=== PATIENT | female | born 1940 | race Caucasian/White ===

== ENCOUNTER → 2018-02-25 | Outpatient (CLI) | payer OTHER ==
[~2018-02-25] MED LIST: ALBUTEROL NEB INH; ALIGN4 MG PO; B12INJ PO; BIOTIN1 M1 PO; BIOTIN1000 MCG PO; BIOTIN300 MCG PO; CALCITRATE200 MG PO; CALCIUM 600 +1 EAC1 PO; CEFTIN 250 MG250 MG PO; CIPRO PO; CLONAZEPAM 1 MG1 M1 PO; HYDRALAZINE 2525 MG PO; HYDROCHLOROTHIA25 M1 PO; K-DUR10 ME1 PO; K-DUR10 MEQ PO; LORTAB 5 MG/5001 TA1; LORTAB 5 MG/5001 TA1 PO; MAGNESIUM 300300 MG PO; METAMUCIL1 EAC1 PO; METAMUCIL283 GM PO; MIRALAX17 GM PO; MUCINEX600 MG PO; MULTIVITAMINS PO; NORCO 5-325 TA1 EACH PO; OMEGA-31000 MG PO; PROLIA60 MG/1 ML SUBQ; PROTONIX40 M2 PO; RECLAST 55 MG/100 M; VITAMIN B-12500 MCG PO; VITAMIN C + RO500 MG PO; VITAMIN D-32000 UNIT PO; VITAMIN D31000 UNIT PO; VITAMIN E400 UNIT PO; ZINC CHELATE50 MG PO; ZOFRAN ODT4 MG PO; [UNRECOGNIZED DRUG - OTHER]
== END ==
LOC: RAD 01:31
DX: Z12.31 Encounter for screening mammogram for malignant neoplasm of breast (principal)

== ENCOUNTER 2018-08-02 20:23 | Emergency (ER) | payer OTHER ==
[~2018-08-02] VITALS: Ht 165.1 cm; Wt 48.5 kg
--- NOTE | ~2018-08-02 | EKG ---
[place] [address] [facility] [place] [address] ELECTROCARDIOGRAM REPORT Name: BLOSSOM SIEGEL Room #: DEP [facility]#: [id number] Admission: 08/02/18 Attend Phys: Discharge: 08/02/18 Date of : 40 Report #: [id number] THIS REPORT FOR: //name// [facility] ED Test Date: 2018-08-02 Test Time: 20:38:59 Pat Name: BLOSSOM SIEGEL Department: Room: Gender: F Head Pumper: JO : 1940 Requested By: Can Diehl Order Number: [id number] MD: Peng Horn Measurements Intervals Valencia Rate: 67 P: 79 AR: 252 QRS: 106 QRSD: 142 T: 58 QT: 466 QTc: 492 Interpretive Statements Atrial-sensed ventricular-paced rhythm No further analysis attempted due to paced rhythm Compared to ECG 01/22/2018 18:55:54 No significant changes Electronically Signed On 08-03-2018 7:36:52 STAFFING [employer]PERATIONS MANAGER by Peng Horn [email or web address] <ELECTRONICALLY SIGNED> By: Peng Horn MD, [facility] 08/03/18 0736 37 37 Peng Horn MD, [facility] /EPI
[2018-08-02] MEDS ORDERED: DOXYCYCLINE HY100 M3 PO (20:42)
[2018-08-02] MEDS ORDERED: RIFADIN300 MG PO (20:43)
[2018-08-02 21:00] LABS: ABSOLUTE NEUTROPHILS 6.6 thou/uL (1.4-8.2); BASOPHILS 0.6 % (0.0-2.0); EOSINOPHILS 2.5 % (0.0-3.0); HEMATOCRIT 38.5 % (37.0-47.0); HEMOGLOBIN 13.3 gm/dL (12.0-15.0); LYMPHOCYTES 14.5 % (24.0-44.0); MCH 30.9 pg (26.0-34.0); MCHC 34.5 g/dL (28.0-37.0); MCV 89.5 fL (80.0-100.0); MONOCYTES 7.7 % (1.0-8.0); PLATELET COUNT 195 thou/uL (150-400); POLYS 74.7 % (36.0-66.0); WBC 8.8 thou/uL (4.0-11.0)
[2018-08-02 21:05] LABS: ANION GAP 5 mmol/L (7-16); BUN 28 mg/dL (7-18); CALCIUM 9.4 mg/dL (8.5-10.1); CHLORIDE 101 mmol/L (98-107); CO2 28 mmol/L (21-32); CREATININE 0.8 mg/dL (0.6-1.0); GLUCOSE 111 mg/dL (74-106); POTASSIUM 4.2 mmol/L (3.5-5.1); SODIUM 134 mmol/L (136-145)
[2018-08-02 21:14] LABS: ALBUMIN 3.4 g/dL (3.4-5.0); MAGNESIUM 1.7 mg/dL (1.8-2.4); SGOT 31 U/L (15-37); SGPT 38 U/L (30-65); TOTAL BILIRUBIN 0.4 mg/dL (<0.1-1.0); TOTAL PROTEIN 6.7 g/dL (6.4-8.2); TROPONIN-I <0.06 ng/mL (<0.06)
[2018-08-02 22:46] VITALS: BP 133/83
== END 2018-08-02 22:47 | disposition home or self-care (01) ==
LOC: ER 20:23
PROVIDERS: Emergency Medicine
DX: R00.2 Palpitations (principal); Z95.0 Presence of cardiac pacemaker; K21.9 Gastro-esophageal reflux disease without esophagitis; I10 Essential (primary) hypertension; G25.81 Restless legs syndrome; Z87.891 Personal history of nicotine dependence; Z88.1 Allergy status to other antibiotic agents; Z88.2 Allergy status to sulfonamides; Z90.89 Acquired absence of other organs; Z90.49 Acquired absence of other specified parts of digestive tract; Z90.5 Acquired absence of kidney

== ENCOUNTER → 2019-02-24 | Outpatient (CLI) | payer OTHER ==
[~2019-02-24] MED LIST changes: +DOXYCYCLINE HY100 M3 PO; +RIFADIN300 MG PO
[2019-02-24 09:36] LABS: CALCIUM 10.3 mg/dL (8.5-10.1); CREATININE 0.9 mg/dL (0.6-1.0); POTASSIUM 3.9 mmol/L (3.5-5.1)
--- NOTE | 2019-02-26 08:06 | PATH ---
[facility] [address] [place] [address] PATHOLOGY RPT PROCEDURE Name: YOLANDA LYNN Room #: REG ARY Fuller#: [id number] ������������������ Admission: 02/24/19 ������������������ Date of : 40 Discharge: Report #: [id number] Path Case #: [id number] [facility] Accession Number: [id number] . 01 Material submitted: . esophagus - DISTAL ESOPHAGUS RULE OUT BARRETTS. Modifiers: distal . 01 Clinical history: . GERD, abdominal bloating GERD, abdominal bloating rule out Howard's . 02 Diagnosis: Gastric cardia-type mucosa, distal esophagus R/O Howard's, endoscopic biopsy: - Moderate chronic inflammation. - Negative for intestinal metaplasia or dysplasia. (IUV:angela; 02/25/2019) QMS/02/25/2019 . 02 Electronically signed: . Sana Womack MD, Pathologist NPI- [id number] . 01 Gross description: . The specimen is received in formalin, labeled "Yolanda Lynn, BX distal esophagus rule out Howard's" and consists of 2 fragments of bethea tissue measuring 0.6 x 0.3 cm and 0.5 x 0.2 cm which are entirely submitted in A1. (SDY; 02/24/2019) SYU/SYU . 02 Pathologist provided ICD-10: K20.9 . 02 CPT . 503733 Specimen Comment: A courtesy copy of this report has been sent to Specimen Comment: [phone], . Specimen Comment: Report sent to / DR PALOMO Specimen Comment: A duplicate report has been generated due to demographic update Specimen Comment: of the patient's Date of , Age, Gender, and/or Specimen Date. Specimen Comment: Please review patient results, reference intervals, and calculated Specimen Comment: results that may have been affected by this change. Performed at: 01 [place] [address] PATHOLOGY RPT PROCEDURE Name: YOLANDA LYNN [facility] [id number] ������������������ Admission: 02/24/19 ������������������ Date of : 40 Discharge: Report #: [id number] Path Case #: [id number] [facility] [address] [place] [address] [address], [place] [id number] MD Sedrick Murrell MD Phone: [phone] Performed at: [address] [id number] MD Sana Womack MD Phone: [phone]
--- NOTE | 2019-02-26 08:47 | P ---
[facility] [place] [address] [place] [address] PROCEDURE REPORT Name: BLOSSOM SIEGEL Room #: REG [facility]#: [id number] Admission: 02/24/19 ������������������ Attend Phys: Иван Mesa Discharge: ������������������ Date of : 40 Report #: [id number] THIS REPORT FOR: //name// CC: Ru Molina DATE OF SERVICE: 02/24/2019 PROCEDURE PERFORMED: Upper endoscopy with biopsies. HISTORY OF PRESENT ILLNESS: The patient is a 78-year-old female with gastroesophageal reflux disease who has been on PPI therapy for a long period of time, but this has become less effective. She also complains of abdominal bloating, gas as well as early satiety. She was seen in the office by myself on 02/09/2019. We proceeded with labs testing, which was negative for H. pylori and celiac sprue. We discussed trial of a different probiotic, considering b.i.d. PPI therapy. The patient has already tried simethicone with minimal improvement. Plan is for upper endoscopy. DESCRIPTION OF PROCEDURE: The risks and benefits of the procedure were explained to the patient, those risks including but not limited to bleeding, perforation and the risk of sedation. She understood these risks and gave informed consent. Propofol was given per Anesthesia. Next, using a standard Olympus upper endoscope, the scope was placed in the patient's mouth and advanced under direct vision to the esophagus, stomach and into the second portion of the duodenum. The larynx was normal in appearance. The upper and mid esophagus was normal. 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 Biopsies were obtained. There was no evidence of erosive esophagitis. Overall, the gastric mucosa was normal. The pylorus was normal and patent. The duodenal bulb, first and second portion were all normal. The scope was then withdrawn and the procedure terminated. The patient tolerated the procedure well. IMPRESSION: 1. 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 2. Otherwise, normal upper endoscopy. RECOMMENDATIONS: 1. Await biopsy results. 2. We discussed increasing Protonix to b.i.d. 3. We also discussed proceeding with a gastric emptying study as the patient does complain of early satiety and abdominal bloating, especially after eating. [address] [address] PROCEDURE REPORT Name: BLOSSOM SIEGEL Room #: REG [facility] Alina#: [id number] Admission: 02/24/19 ������������������ Attend Phys: Иван Mesa Discharge: ������������������ Date of : 40 Report #: [id number] Thank you for allowing me to participate in her care. ��������������������������������������������� <ELECTRONICALLY SIGNED> ���������������������������������������� By: Иван Molina MD ��������������������������������������������� 02/26/19 0847 1031 1804 Иван Molina MD /nt
== END | disposition home or self-care (01) ==
LOC: GI 08:20
PROVIDERS: Specialist
DX: K29.50 Unspecified chronic gastritis without bleeding (principal); K21.9 Gastro-esophageal reflux disease without esophagitis; I12.9 Hypertensive chronic kidney disease with stage 1 through stage 4 chronic kidney disease, or unspecified chronic kidney disease; N18.9 Chronic kidney disease, unspecified; Z95.0 Presence of cardiac pacemaker; Z90.5 Acquired absence of kidney; Z88.2 Allergy status to sulfonamides; Z88.8 Allergy status to other drugs, medicaments and biological substances; Z79.899 Other long term (current) drug therapy
CPT/HCPCS: 62110; 62900

== ENCOUNTER → 2019-03-16 | Outpatient (CLI) | payer OTHER | LOC: RAD 03:03 | DX: Z12.31 Encounter for screening mammogram for malignant neoplasm of breast (principal) ==

== ENCOUNTER → 2019-03-23 | Outpatient (CLI) | payer OTHER | LOC: NUC 08:14 | DX: R68.81 Early satiety (principal); R14.0 Abdominal distension (gaseous) ==

== ENCOUNTER → 2020-03-27 | Outpatient (CLI) | payer OTHER | LOC: RAD 08:06 | PROVIDERS: ATTEND Internal Medicine | DX: Z12.31 Encounter for screening mammogram for malignant neoplasm of breast (principal) ==

== ENCOUNTER → 2020-03-31 | Outpatient (CLI) | payer OTHER ==
[2020-03-31 15:43] LABS: CREATININE 0.9 mg/dL (0.6-1.0)
== END ==
LOC: LAB 15:05
PROVIDERS: ATTEND Pediatrics
DX: I26.09 Other pulmonary embolism with acute cor pulmonale (principal); I70.0 Atherosclerosis of aorta

== ENCOUNTER → 2020-04-28 | Outpatient (CLI) | payer OTHER ==
[~2020-04-28] MED LIST changes: +CALCIUM + VITA1 EACH PO; +CARAFATE 1 GM TA1 GM PO; +KEFLEX500 M1 PO; +OMEPRAZOLE 20 M20 M1 PO; +PROBIOTIC1 EAC3 PO; +TUMS300 MG PO
== END ==
LOC: LAB 12:02
PROVIDERS: ATTEND Specialist
DX: Z01.812 Encounter for preprocedural laboratory examination (principal); Z20.828 Contact with and (suspected) exposure to other viral communicable diseases

== ENCOUNTER → 2020-05-03 | Outpatient (CLI) | payer OTHER ==
[~2020-05-03] VITALS: Ht 165.1 cm; Wt 49.4 kg
--- NOTE | 2020-05-05 08:12 | P ---
[facility] [place] [address] PROCEDURE REPORT Name: BLOSSOM SIEGEL [id number] Admission: 05/03/20 Attend Phys: Иван Mesa Discharge: Date of : 40 Report #: [id number] THIS REPORT FOR: cc: Ru Murphy MD, Bernard O. MD McElhinney, Christian C. MD ~ CC: Ru Soto MD DATE OF SERVICE: 05/03/2020 PROCEDURE PERFORMED: Colonoscopy with polypectomies. HISTORY OF PRESENT ILLNESS: The patient is a 79-year-old female who has a pulmonary nodule. This has been evaluated recently by PET scan. It did show some uptake in the cecum. The patient had a colonoscopy 2 years ago in which polyps were removed in the sigmoid colon, was also noted to have sigmoid diverticulosis at that time. She reports her bowel movements have been normal. No family history of colon cancer. Plan is for colonoscopy. DESCRIPTION OF PROCEDURE: The risks and benefits of the procedure were explained to the patient, those risks including but not limited to bleeding, perforation and the risk of sedation. She understood these risks and gave informed consent. Sedation was given using propofol per anesthesia. Next, a digital rectal exam was initially performed, which was normal. Next, using a pediatric Olympus colonoscope, the scope was placed in the patient's anus and advanced under direct vision to the cecum. The overall prep was excellent. In the cecum, there was a 6 mm sessile polyp. This was removed by snare cautery, otherwise normal. The ileocecal valve was normal. In the ascending colon, a 5 mm sessile polyp also noted and removed by snare cautery. The transverse and descending colon were normal. Multiple diverticula were noted in the sigmoid colon, no evidence of inflammation, otherwise normal. The rectal mucosa was normal. No abnormalities were noted on retroflexion. The scope was then withdrawn and the procedure terminated. The patient tolerated the procedure well. IMPRESSION: 1. Cecal polyp, likely reason for PET scan showing abnormality in the cecum. No other abnormalities noted. No evidence of colitis. Polyp was removed. 2. Ascending colon polyp. 3. Sigmoid diverticulosis. RECOMMENDATIONS: Await biopsy results. [address] [address] PROCEDURE REPORT Name: BLOSSOM SIEGEL Room #: REG [facility] Alina#: [id number] Admission: 05/03/20 Attend Phys: Иван Mesa Discharge: Date of : 40 Report #: [id number] Thank you for allowing me to participate in her care. <ELECTRONICALLY SIGNED> By: Иван Molina MD 05/05/20 0812 1126 1405 Иван Molina MD /nt
--- NOTE | 2020-05-05 08:12 | P ---
[facility] [place] [address] PROCEDURE REPORT Name: BLOSSOM SIEGEL Room #: REG ARY Fuller#: [id number] Admission: 05/03/20 Attend Phys: Иван Mesa Discharge: Date of : 40 Report #: [id number] THIS REPORT FOR: cc: Ru Murphy MD, Bernard O. MD McElhinney, Christian C. MD ~ CC: Ru Soto MD DATE OF SERVICE: 05/03/2020 PROCEDURE PERFORMED: Upper endoscopy with biopsies and esophageal dilation. HISTORY OF PRESENT ILLNESS: The patient is a 79-year-old female with a history of gastroesophageal reflux disease, intermittent dysphagia. Despite being on b.i.d. PPI therapy and Carafate, as well as simethicone, she still complains of abdominal bloating and gas. Previous upper endoscopy by my partner 2 years ago was essentially negative. Gastric polyp biopsies were fundic gland polyp at that time. Biopsies for celiac sprue were negative. Gastric emptying study was performed in 03/2019, which was normal. During her last visit, we discussed a trial of simethicone and Reglan, which she has tried without much improvement. The patient also has a pulmonary nodule with a recent PET scan followup showing the nodule, but also uptake possibly in the cecum; therefore, she is scheduled for EGD and colonoscopy today. DESCRIPTION OF PROCEDURE: The risks and benefits of the procedure were explained to the patient, those risks including but not limited to bleeding, perforation, and the risk of sedation. She understood these risks and gave informed consent. Sedation was given using propofol per anesthesia. Next, using a standard Olympus upper endoscope, the scope was placed in the patient's mouth and advanced under direct vision through the esophagus, stomach and into the second portion of the duodenum. The larynx was normal in appearance. The esophagus was normal throughout. The GE junction was normal. Overall, the gastric mucosa was normal. Because of her symptoms, biopsies were obtained to rule out H. pylori. The pylorus was normal and patent. The duodenal bulb, first and second portion were all normal. The scope was then brought back up into the patient's stomach and a Savary guidewire was inserted through the scope, leaving the guidewire in place, as the scope was then withdrawn. Next, a 48-Djiboutian Savary dilation of the esophagus was performed without difficulty. A 51-Djiboutian was used. The wire and dilator were removed. The scope was reintroduced into the patient's mouth and into her stomach. No evidence of mucosal tear was noted after dilation. The scope was then withdrawn and the procedure terminated. The patient tolerated the procedure well. [address] [address] PROCEDURE REPORT Name: BLOSSOM SIEGEL Parker Room #: REG [facility] Alina#: [id number] Admission: 05/03/20 Attend Phys: Иван Mesa Discharge: Date of : 40 Report #: [id number] IMPRESSION: Normal upper endoscopy. RECOMMENDATIONS: 1. Await biopsy results. 2. Observe the patient post-dilation. 3. We discussed a trial of different PPI therapy. 4. We will proceed with colonoscopy next today. Thank you for allowing me to participate in her care. <ELECTRONICALLY SIGNED> By: Иван Molina MD 05/05/20 0812 1045 1310 Иван Molina MD /nt
--- NOTE | 2020-05-05 15:07 | PATH ---
[facility] [place] [address] PATHOLOGY RPT PROCEDURE Name: YOLANDA LYNN Room #: REG ARY [facility]que.#: [id number] Admission: 05/03/20 Date of : 40 Discharge: Report #: [id number] Path Case #: [id number] [facility] Accession Number: [id number] . 01 Material submitted: . PART A: stomach - BIOPSY OF GASTRITIS R/O H. PYLORI PART B: cecum - POLYP AT CECUM PART C: colon - POLYP AT ASCENDING COLON. Modifiers: ascending . 02 Diagnosis: A. Stomach, biopsy: - Mild chronic inactive gastritis. - An H. pylori immunostain is negative (A1; appropriate control). . B. Cecum, biopsy: - Sessile serrated polyp, fragments. - Negative for high grade dysplasia. . C. Ascending colon, biopsy: - Tubular adenoma. - Negative for high grade dysplasia. . (MAP:[facility]; 05/04/2020) [facility] 05/04/2020 1550 Local . 02 Electronically signed: . Juan A Larios MD, Pathologist NPI- [id number] . 01 Gross description: . A. The specimen is received in formalin, labeled "LeahYolanda", "biopsy of gastritis". Received are 3 segments of pale bethea soft tissue, measuring 0.1, 0.2 and 0.3 cm. The specimen is entirely submitted in cassette A1. . B. The specimen is received in formalin, labeled "Yolanda Lynn", "polyp at cecum". Received are 4 polypoid segments of dark pink-bethea soft tissue, ranging in size from 0.1 cm to 0.8 cm. The specimen is entirely submitted in cassette B1. . C. The specimen is received in formalin, labeled "Yolanda Lynn", "polyp at ascending colon". Received is a single polypoid segment of pale bethea soft tissue measuring 0.2 cm. The specimen is entirely submitted in cassette C1.([facility]; 05/03/2020) BEN/TAMMY 05/03/2020 [facility] Local . 02 Pathologist provided ICD-10: K29.50, K63.5, D12.2 [place] [address] PATHOLOGY RPT PROCEDURE Name: LEAHYOLANDA Room #: REG Adeola Fuller#: [id number] Admission: 05/03/20 Date of : 40 Discharge: Report #: [id number] Path Case #: [id number] . 02 CPT . 429235, 098469, [id number], [id number] Specimen Comment: A courtesy copy of this report has been sent to [phone] Specimen Comment: [phone] Specimen Comment: Report sent to / DR PALOMO Performed at: [address], [place] [id number] MD Sedrick Murrell MD Phone: [phone] Performed at: [address] [facility] [id number] MD Sana Womack MD Phone: [phone]
== END | disposition home or self-care (01) ==
LOC: GI 04-14 11:27
PROVIDERS: ATTEND Specialist
DX: R93.3 Abnormal findings on diagnostic imaging of other parts of digestive tract (principal); R14.0 Abdominal distension (gaseous); D12.0 Benign neoplasm of cecum; D12.2 Benign neoplasm of ascending colon; K57.30 Diverticulosis of large intestine without perforation or abscess without bleeding; K29.50 Unspecified chronic gastritis without bleeding; R13.10 Dysphagia, unspecified; M81.0 Age-related osteoporosis without current pathological fracture; K21.9 Gastro-esophageal reflux disease without esophagitis; Z98.890 Other specified postprocedural states; Z79.899 Other long term (current) drug therapy; Z95.0 Presence of cardiac pacemaker; Z85.528 Personal history of other malignant neoplasm of kidney; Z85.828 Personal history of other malignant neoplasm of skin; Z87.19 Personal history of other diseases of the digestive system; Z90.49 Acquired absence of other specified parts of digestive tract; Z98.51 Tubal ligation status
CPT/HCPCS: 62110; 62900

== ENCOUNTER → 2020-07-05 | Outpatient (CLI) | payer OTHER | LOC: CAT 10:29 | PROVIDERS: ATTEND Internal Medicine | DX: R91.8 Other nonspecific abnormal finding of lung field (principal); J98.4 Other disorders of lung ==

== ENCOUNTER → 2020-08-03 | Outpatient (CLI) | payer OTHER ==
[~2020-08-03] VITALS: Ht 165.1 cm; Wt 49.4 kg
[2020-08-03 08:32] LABS: APTT 25.6 Seconds (24.5-32.8); PROTIME 10.6 Seconds (9.3-11.4)
[2020-08-03 10:11] VITALS: BP 165/63
[2020-08-03 12:43] VITALS: BP 139/61
[2020-08-03 12:47] VITALS: BP 152/53
--- NOTE | 2020-08-08 16:06 | PATH ---
[facility] [address] [place] [address] PATHOLOGY RPT PROCEDURE Name: YOLANDA LYNN Room #: REG [facility].#: [id number] Admission: 08/03/20 Date of : 40 Discharge: Report #: [id number] Path Case #: [id number] [facility] Accession Number: [id number] . 01 Material submitted: . lung - RIGHT LUNG MASS. Modifiers: right . 02 Diagnosis: Lung, right lung mass, needle core biopsy: - Numerous non-necrotizing granulomata. - Mild chronic inflammation. - Negative for foreign body-type polarizable material. - Background of benign alveolated lung parenchyma. - Negative for malignancy. (IUV:pit 08/07/2020) QTP 08/07/2020 1249 Local . 02 Comment: AFB and GMS fungal special stains are ordered on block A1. The results of these will be reported in an addendum to follow. (IUV:pit 08/07/2020) . 02 Addendum: . Acid fast bacillus and Gomori methenamine silver stains performed on A1 are negative for mycobacterial as well as fungal elements, respectively (IUV:pit 08/08/2020) . Professional services performed by [facility] at [facility], [address] [place], [place] [address], [place] [address]. Technical services performed by [facility] at [address] [place] [address], [address] [address]. MBR/08/08/2020 Addendum Electronically Signed by Sana Womack MD, Pathologist . 02 Electronically signed: . Sana Womack MD, Pathologist NPI- [id number] . 01 Gross description: . The specimen is received in formalin, labeled "Yolanda Lynn, right lung biopsy". Received are multiple needle cores of pale bethea friable soft tissue ranging in length from 0.3 to 0.9 cm in length by 0.1 cm in diameter. The specimen is submitted entirely in cassette A1 through A3. ([facility]; 08/04/2020) QAC/QAC 08/04/2020 1017 Local . 02 Pathologist provided ICD-10: J84.10, J18.[address] [address] PATHOLOGY RPT PROCEDURE Name: YOLANDA LYNN Room #: REG CL M.R.#: [id number] Admission: 08/03/20 Date of : 40 Discharge: Report #: [id number] Path Case #: [id number] . 02 CPT . 070163, 906303, [id number] Specimen Comment: A courtesy copy of this report has been sent to [phone] Specimen Comment: Report sent to Performed at: [address], [place], [place] [id number] MD Micheal Santoyo MD Phone: [phone] Performed at: [address] [id number] MD Sana Womack MD Phone: [phone]
== END | disposition home or self-care (01) ==
LOC: LAB 07:39
PROVIDERS: ATTEND Internal Medicine
DX: R91.8 Other nonspecific abnormal finding of lung field (principal); J84.10 Pulmonary fibrosis, unspecified; J18.9 Pneumonia, unspecified organism; K21.9 Gastro-esophageal reflux disease without esophagitis; M81.0 Age-related osteoporosis without current pathological fracture; Z98.890 Other specified postprocedural states; Z90.49 Acquired absence of other specified parts of digestive tract; Z79.899 Other long term (current) drug therapy; Z85.828 Personal history of other malignant neoplasm of skin; Z90.5 Acquired absence of kidney; Z98.51 Tubal ligation status; Z95.0 Presence of cardiac pacemaker; Z88.2 Allergy status to sulfonamides; Z88.8 Allergy status to other drugs, medicaments and biological substances

== ENCOUNTER → 2020-08-09 | Outpatient (CLI) | payer OTHER | LOC: RAD 12:01 | PROVIDERS: ATTEND Internal Medicine | DX: J93.9 Pneumothorax, unspecified (principal); I51.7 Cardiomegaly ==

== ENCOUNTER → 2020-08-18 | Outpatient (CLI) | payer OTHER | LOC: RAD 10:49 | PROVIDERS: ATTEND Internal Medicine | DX: J93.83 Other pneumothorax (principal) ==

== ENCOUNTER → 2020-12-05 | Outpatient (CLI) | payer OTHER | LOC: CAT 11:08 | PROVIDERS: ATTEND Internal Medicine | DX: R91.8 Other nonspecific abnormal finding of lung field (principal) ==

== ENCOUNTER → 2021-04-16 | Outpatient (CLI) | payer OTHER | LOC: BC 12:02 | PROVIDERS: ATTEND Internal Medicine | DX: Z12.31 Encounter for screening mammogram for malignant neoplasm of breast (principal) ==

== ENCOUNTER → 2021-07-11 | Outpatient (CLI) | payer OTHER | LOC: CAT 06-15 10:00 | PROVIDERS: ATTEND Internal Medicine | DX: R91.8 Other nonspecific abnormal finding of lung field (principal) ==